=== PATIENT | male | born 1985 | race African-American/Black ===

== ENCOUNTER 2024-10-11 20:53 | Emergency (ER) | payer MEDICAID ==
[~2024-10-11] VITALS: Ht 188 cm; Wt 69.0 kg
[2024-10-11 20:57] VITALS: O2SAT 100
[2024-10-11 22:44] VITALS: BP 136/72; PULSE 100; RESP 11; TEMP 36.7; O2SAT 99
== END 2024-10-11 22:45 | disposition home or self-care (01) ==
LOC: ER 20:53
DX: R00.2 Palpitations (principal)
CPT/HCPCS: 71045; 93005; 99283